=== PATIENT | male | born 1995 | race Caucasian/White ===

== ENCOUNTER 2017-05-09 17:37 | Emergency (ER) | payer BC ==
[~2017-05-09] VITALS: Ht 182.9 cm; Wt 73.6 kg
[2017-05-09 17:37] VITALS: TEMP 36.5; Ht 182.9 cm; Wt 73.6 kg
--- NOTE | 2017-05-09 18:05 | DIAGNOSTIC IMAGING REPORT ---
CHEST ONE VIEW PORTABLE HISTORY: 22 years-old Male CHEST PAIN acute atypical chest pain COMPARISON: None available TECHNIQUE: Portable upright AP view of the chest FINDINGS: Cardiomediastinal and hilar silhouettes are within normal limits. There is no pneumothorax, pleural effusion, focal airspace consolidation or overt pulmonary edema. The bones of the chest appear grossly intact. IMPRESSION: No acute process. The above report was generated using voice recognition software. It may contain grammatical, syntax or spelling errors. Electronically signed by: Jordan Herndon M.D. 05/09/2017 6:03 PM Dictated Date/Time: 05/09/2017 6:02 PM
[2017-05-09 18:08] LABS: BASO % 0.2 %; BASO ABS # 0.01 K/uL (0-0.2); EOS % 0.9 %; EOS ABS # 0.05 K/uL (0-0.5); HEMATOCRIT 43.3 % (42-52); HEMOGLOBIN 15.6 g/dL (14.0-18.0); LYMPH % 20.2 %; MEAN CELL VOLUME 81.5 fL (80-100); MEAN CORPUSCULAR HEMOGLOBIN 29.4 pg (25-34); MEAN PLATELET VOLUME 9.9 fL (7.4-10.4); MONO % 10.3 %; MONO ABS # 0.56 K/uL (0.11-0.59); NEUT % 68.4 %; NEUT ABS # 3.73 K/uL (1.4-6.5); PLATELET COUNT 188 K/uL (130-400); RED CELL DISTRIBUTION WIDTH CV 12.8 % (11.5-14.5); RED CELL DISTRIBUTION WIDTH SD 38.4 fL (36.4-46.3); WHITE BLOOD COUNT 5.45 K/uL (4.8-10.8)
[2017-05-09 18:30] LABS: ALBUMIN 4.6 gm/dl (3.4-5.0); ALT/SGPT 37 U/L (12-78); AST/SGOT 19 U/L (15-37); BLOOD UREA NITROGEN 13 mg/dl (7-18); CALCIUM 8.9 mg/dl (8.5-10.1); CARBON DIOXIDE 26 mmol/L (21-32); CREATININE 1.15 mg/dl (0.60-1.40); GLUCOSE 109 mg/dl (70-99); LIPASE 57 U/L (73-393); POTASSIUM 3.6 mmol/L (3.5-5.1); SODIUM 135 mmol/L (136-145)
[2017-05-09 18:36] LABS: ALKALINE PHOSPHATASE 107 U/L (45-117); CKMB 1.1 ng/ml (0.5-3.6)
--- NOTE | 2017-05-09 18:37 | EMERGENCY ROOM VISIT NOTE ---
History Report prepared by Kuldeep: Pollo Jo Under the Supervision of: Dr. Tito Davila M.D. First contact with patient: 17:40 Chief Complaint: CHEST PAIN Stated Complaint: CHEST PAIN History of Present Illness The patient is a 22 year old male who presents to the Emergency Room with complaints of persistent left-sided chest pain that started about an hour and 15 minutes ago. He states that he was sitting down in class, and was chewing on a pencil, and a little piece of plastic broke off, and he accidentally swallowed the piece of plastic, which worked him up. The patient notes that he did not choke on the piece of plastic. He says that the pain was an 8 out of 10 in severity initially, and has now lessened in intensity, and is now a 5 out of 10 in severity. The patient states that the chest pain came on about a minute or so after he freaked out about the pencil. He adds that he had heavy breathing as well. The patient says that he is currently a bit nauseous. He notes that 10 days ago while in his hometown, he was in the hospital for similar chest pain. He states that he was playing video games when the pain came on, but was cleaning snow off of cars about 2 hours before the episode started. The patient says that he was given IV Toradol there which made the chest pain better. He states that ever since then he has had some on-and-off chest pain. He states that his uncle of a heart attack at the age of 32, but his uncle was very unhealthy. Pt denies LOC, headache, fevers, chills, diaphoresis, visual changes, neck pain, tearing pain radiating to the back, personal history or family history of aneurysm or pulmonary embolism, uncontrolled hypertension, leg swelling, coagulation abnormalities, prolonged travel, recent surgery or immobilization, vomiting, abdominal pain, melena, hematochezia, urinary symptoms, numbness, weakness, lymphadenopathy, rash, or other complaints. Source of History: patient Onset: An hour and 15 minutes ago Position: chest (left) Symptom Intensity: at worst an 8 out of 10 Timing: other (persistent) Associated Symptoms: + SOB, + nausea Note: No other associated symptoms noted. Review of Systems See HPI for pertinent positives and negatives. A total of ten systems were reviewed and were otherwise negative. Past Medical & Surgical Medical Problems: (1) No chronic diseases present Family History Heart disease Social History Marital Status: single Housing Status: lives with roommate Occupation Status: [employer] student Current/Historical Medications No Active Prescriptions or Reported Meds Allergies Coded Allergies: No Known Allergies (Unverified , 05/09/17) Physical Exam Vital Signs Date Time Temp Pulse Resp B/P (MAP) Pulse Ox O2 Delivery O2 Flow Rate FiO2 05/09/17 20:22 82 16 137/77 96 05/09/17 18:38 88 16 131/77 100 Room Air 05/09/17 18:38 100 Room Air 05/09/17 18:38 100 Room Air 05/09/17 17:37 36.5 107 20 137/75 100 Room Air 05/09/17 17:37 100 Room Air Physical Exam GENERAL: Awake, alert, well-appearing, in no distress HENT: Normocephalic, atraumatic. Oropharynx unremarkable. EYES: Normal conjunctiva. Sclera non-icteric. NECK: Supple. No nuchal rigidity. FROM. No masses. RESPIRATORY: Clear to auscultation. No wheezes. No rales. Normal respiratory effort. CARDIAC: Normal rate. Normal rhythm. No murmurs. No rubs. Extremities warm and well perfused. Pulses equal. No JVD. GI: Soft, non-distended. No tenderness to palpation. No rebound or guarding. No masses. RECTAL: Deferred. MUSCULOSKELETAL: Atraumatic. Chest examination reveals no tenderness. The back is symmetrical on inspection without obvious abnormality. There is no CVA tenderness to palpation. No joint edema. LOWER EXTREMITIES: Calves are equal size bilaterally and non-tender. No edema. No discoloration. NEURO: Normal sensorium. No sensory or motor deficits noted. SKIN: No rash or jaundice noted. Medical Decision & Procedures ER Provider Diagnostic Interpretation: X-ray: Per my interpretation, radiologist review. CHEST ONE VIEW PORTABLE HISTORY: 22 years-old Male CHEST PAIN acute atypical chest pain COMPARISON: None available TECHNIQUE: Portable upright AP view of the chest FINDINGS: Cardiomediastinal and hilar silhouettes are within normal limits. There is no pneumothorax, pleural effusion, focal airspace consolidation or overt pulmonary edema. The bones of the chest appear grossly intact. IMPRESSION: No acute process. The above report was generated using voice recognition software. It may contain grammatical, syntax or spelling errors. Electronically signed by: Jordan Herndon M.D. 05/09/2017 6:03 PM Dictated Date/Time: 05/09/2017 6:02 PM Laboratory Results 05/09/17 17:49 Red Blood Count 5.31, Mean Corpuscular Volume 81.5, Mean Corpuscular Hemoglobin 29.4, Mean Corpuscular Hemoglobin Concent 36.0, Mean Platelet Volume 9.9, Neutrophils (%) (Auto) 68.4, Lymphocytes (%) (Auto) 20.2, Monocytes (%) (Auto) 10.3, Eosinophils (%) (Auto) 0.9, Basophils (%) (Auto) 0.2, Neutrophils # (Auto ) 3.73, Lymphocytes # (Auto) 1.10, Monocytes # (Auto) 0.56, Eosinophils # (Auto ) 0.05, Basophils # (Auto) 0.01 05/09/17 17:49 Test 05/09/17 17:49 05/09/17 18:03 05/09/17 19:26 White Blood Count 5.45 K/uL (4.8-10.8) Red Blood Count 5.31 M/uL (4.7-6.1) Hemoglobin 15.6 g/dL (14.0-18.0) Hematocrit 43.3 % (42-52) Mean Corpuscular Volume 81.5 fL (80-100) Mean Corpuscular Hemoglobin 29.4 pg (25-34) Mean Corpuscular Hemoglobin Concent 36.0 g/dl (32-36) Platelet Count 188 K/uL (130-400) Mean Platelet Volume 9.9 fL (7.4-10.4) Neutrophils (%) (Auto) 68.4 % Lymphocytes (%) (Auto) 20.2 % Monocytes (%) (Auto) 10.3 % Eosinophils (%) (Auto) 0.9 % Basophils (%) (Auto) 0.2 % Neutrophils # (Auto) 3.73 K/uL (1.4-6.5) Lymphocytes # (Auto) 1.10 K/uL (1.2-3.4) Monocytes # (Auto) 0.56 K/uL (0.11-0.59) Eosinophils # (Auto) 0.05 K/uL (0-0.5) Basophils # (Auto) 0.01 K/uL (0-0.2) RDW Standard Deviation 38.4 fL (36.4-46.3) RDW Coefficient of Variation 12.8 % (11.5-14.5) Immature Granulocyte % (Auto) 0.0 % Immature Granulocyte # (Auto) 0.00 K/uL (0.00-0.02) Anion Gap 6.0 mmol/L (3-11) Est Creatinine Clear Calc Drug Dose 106.7 ml/min Estimated GFR () 105.6 Estimated GFR (Non- 91.1 BUN/Creatinine Ratio 11.7 (10-20) Calcium Level 8.9 mg/dl (8.5-10.1) Total Bilirubin 0.7 mg/dl (0.2-1) Direct Bilirubin 0.2 mg/dl (0-0.2) Aspartate Amino Transf (AST/SGOT) 19 U/L (15-37) Alanine Aminotransferase (ALT/SGPT) 37 U/L (12-78) Alkaline Phosphatase 107 U/L (45-117) Total Creatine Kinase 168 U/L (39-308) Creatine Kinase MB 1.1 ng/ml (0.5-3.6) Creatine Kinase MB Ratio 0.7 (0-3.0) Total Protein 8.0 gm/dl (6.4-8.2) Albumin 4.6 gm/dl (3.4-5.0) Lipase 57 U/L (73-393) Bedside D-Dimer 54 ng/mlFEU (0-450) Troponin I < 0.015 ng/ml (0-0.045) Laboratory results reviewed by me ECG Per My Interpretation Indication: chest pain Rate (beats per minute): 94 Rhythm: sinus rhythm (with sinus arrhythmia) Findings: no acute ischemic change, no ectopy, other (normal intervals) ED Course 1745: The patient was evaluated in room C3. A complete history and physical exam was performed. 1902: I reevaluated the patient and he is feeling better. He will get a repeat troponin. 2008: I reevaluated the patient and he is resting comfortably. Discussed results and discharge instructions: he verbalized understanding and agreement. The patient is ready for discharge. Medical Decision Triage Nursing notes reviewed. The patient's presentation and history were concerning for chest pain. Etiologies such as Foreign body ingestion, pneumothorax, musculoskeletal, infections, gastrointestinal, anxiety, panic disorder,cardiac ischemia, aortic dissection, pulmonary embolism, pneumonia, as well as others were entertained. Patient was evaluated. Clinical he was feeling better. He felt like he got worked up when he swallowed piece of plastic and then got chest pain. He had a similar episode that occurred at rest about 10 days ago. His ECG was unremarkable. Chest x-ray negative. D-dimer performed and was negative. Cardiac markers negative. No evidence of myocarditis. He had unremarkable LFTs. There is no evidence of radiopaque foreign body on chest x-ray. No other emergent pathology and imaging. Troponin rechecked and was unremarkable. I suspect the patient had some anxiety or panic that caused the symptoms. He is doing exceptionally well at this time. Conservative management was discussed. The patient feels comfortable with this plan. If he has any problems he will come back to the emergency department. By the evaluation outlined above other emergent etiologies such as those listed in the differential, as well as others, were deemed relatively unlikely. The patient was educated about the findings as listed above. All questions were answered and the patient was pleased with the treatment. Return instructions were outlined and the patient was discharged in stable condition. The patient was referred to [facility] for follow-up for a recheck of the current condition. Medication Reconcilliation Current Medication List: was personally reviewed by me Blood Pressure Screening Patient's blood pressure: Elevated blood pressure Blood pressure disposition: Elevated BP felt to be situational Impression Primary Impression: Left sided chest pain Scribe Attestation The scribe's documentation has been prepared under my direction and personally reviewed by me in its entirety. I confirm that the note above accurately reflects all work, treatment, procedures, and medical decision making performed by me. Departure Information Dispostion Home / Self-Care Prescriptions No Active Prescriptions or Reported Meds Referrals [facility] (PCP) Patient Instructions My [facility] Additional Instructions CHEST PAIN INSTRUCTIONS: Ibuprofen(Motrin, Advil) may be used for fever or pain. Use 600mg every six hours as needed. Take with food. Avoid using more than 2400mg in a 24 hour period. Do not use 2400mg per day for more than three consecutive days without physician direction. Prolonged inappropriate use can lead to stomach upset or ulcers. (AND/OR) Acetaminophen(Tylenol) may be used for fever or pain. Use 1000mg every six hours as needed. Avoid using more than 4000mg in a 24 hour period. Rest and drink plenty of fluids as tolerated. Continue current medications. Avoid strenuous activities and anything that worsens your pain. Resume normal activities once your symptoms resolve. Return to the ER immediately for worsening or persistent chest pain, abdominal pain, vomiting, fevers, chest pains, difficulty breathing, worsening of your condition, or as needed. Follow up with S in 3 days for a recheck of your current condition.
[2017-05-09 18:38] VITALS: O2SAT 100
[2017-05-09 20:22] VITALS: BP 137/77; PULSE 82; O2SAT 96
== END 2017-05-09 20:22 | disposition home or self-care (01) ==
LOC: C.EDB 17:39 → C.EDC 20:22
DX: R07.9 Chest pain, unspecified (principal)

== ENCOUNTER 2017-05-11 20:37 | Emergency (ER) | payer BC ==
[~2017-05-11] VITALS: Ht 182.9 cm; Wt 73.0 kg
[2017-05-11 20:42] VITALS: TEMP 36.9; Ht 182.9 cm; Wt 73.0 kg
[2017-05-11] MEDS ORDERED: SODIUM CHLORIDE 0.9% 1000ML 1,000 ML IV STA (20:55)
--- NOTE | 2017-05-11 21:01 | EMERGENCY ROOM VISIT NOTE ---
History Report prepared by Kuldeep: Ralph Houston Under the Supervision of: Dr. José Antonio Chase M.D. First contact with patient: 20:48 Chief Complaint: DIZZY Stated Complaint: LIGHTHEADED,DIZZY,FEEL WEAK History of Present Illness The patient is a 22 year old male who presents to the Emergency Room with complaints of constant dizziness that began at 1830. He rates his discomfort as a 5/10 in severity. The patient states that he was here three days ago for left sided chest pain. Per the patient's report, his chest x-ray was negative and his lab work was unremarkable. The patient states that before he came into the ED, he felt as if something was stuck in his throat. He reports that he has been able to swallow, but the sensation has been persistent the last couple of days. The patient states that today he was out to eat with his roommates at 1830 when he became dizzy. He reports that he then lost his appetite and became weak when he tried to walk. He denies shortness of breath, cough, congestion, sore throat, urinary symptoms, new medications, a history of reflux, or diabetes. Source of History: patient Onset: 1829 Position: other (global) Symptom Intensity: 5/10 Quality: other (dizziness) Timing: constant Associated Symptoms: + weakness, No sorethroat, No cough, No SOB, No urinary symptoms Note: Associated symptoms: resolved chest pain, stuck sensation in throat. Review of Systems See HPI for pertinent positives & negatives. A total of 10 systems reviewed and were otherwise negative. Past Medical & Surgical Medical Problems: (1) No chronic diseases present Family History Heart disease Social History Smoking Status: Never Smoker Marital Status: single Housing Status: lives with roommate Occupation Status: [employer] student Current/Historical Medications Scheduled Ranitidine (Zantac), 150 MG PO BID Allergies Coded Allergies: No Known Allergies (Unverified , 05/11/17) Physical Exam Vital Signs Date Time Temp Pulse Resp B/P (MAP) Pulse Ox O2 Delivery O2 Flow Rate FiO2 05/11/17 22:34 95 18 139/81 98 05/11/17 21:20 83 18 121/69 98 Room Air 100 127/68 91 130/74 05/11/17 20:42 36.9 95 18 147/83 98 Room Air Physical Exam GENERAL: Patient is in no acute distress. HEENT: No acute trauma, normocephalic atraumatic, mucous membranes moist, no nasal congestion, no scleral icterus. No throat erythema or exudate. NECK: No stridor, no adenopathy, no meningismus, trachea is midline. LUNGS: Clear to auscultation bilaterally, no wheeze, no rhonchi, breath sounds equal. HEART: Without murmurs gallops or rubs, regular rate and rhythm. ABDOMEN: Soft, mildly diffusely tender, bowel sounds positive, no hernias, no peritonitis. EXTREMITIES: No cyanosis or edema, full range of motion of all the joints without pain or difficulty, no signs for acute trauma. NEUROLOGIC: Oriented x 3, no acute motor or sensory deficits, no focal weakness. SKIN: No rash, no jaundice, no diaphoresis. Medical Decision & Procedures ER Provider Diagnostic Interpretation: Radiology results as stated below per my review and radiologist interpretation: CHEST ONE VIEW PORTABLE HISTORY: 22 years-old Male EVALUATE ALTERED MENTAL STATUS/WEAKNESS acute weakness COMPARISON: Chest radiograph 05/09/2017 TECHNIQUE: Portable AP view of the chest FINDINGS: Cardiomediastinal and hilar silhouettes are within normal limits. No pneumothorax, pleural effusion, focal airspace consolidation or overt pulmonary edema. Bones of the chest appear grossly intact. IMPRESSION: No acute process. The above report was generated using voice recognition software. It may contain grammatical, syntax or spelling errors. Electronically signed by: Jordan Herndon M.D. 05/11/2017 9:42 PM Dictated Date/Time: 05/11/2017 9:42 PM Laboratory Results 05/11/17 21:11 Red Blood Count 5.26, Mean Corpuscular Volume 81.0, Mean Corpuscular Hemoglobin 29.3, Mean Corpuscular Hemoglobin Concent 36.2, Mean Platelet Volume 9.3, Neutrophils (%) (Auto) 80.9, Lymphocytes (%) (Auto) 12.7, Monocytes (%) (Auto) 5.6, Eosinophils (%) (Auto) 0.5, Basophils (%) (Auto) 0.2, Neutrophils # (Auto) 6.62, Lymphocytes # (Auto) 1.04, Monocytes # (Auto) 0.46, Eosinophils # (Auto) 0.04, Basophils # (Auto) 0.02 05/11/17 21:11 Test 05/11/17 21:11 White Blood Count 8.19 K/uL (4.8-10.8) Red Blood Count 5.26 M/uL (4.7-6.1) Hemoglobin 15.4 g/dL (14.0-18.0) Hematocrit 42.6 % (42-52) Mean Corpuscular Volume 81.0 fL (80-100) Mean Corpuscular Hemoglobin 29.3 pg (25-34) Mean Corpuscular Hemoglobin Concent 36.2 g/dl (32-36) Platelet Count 183 K/uL (130-400) Mean Platelet Volume 9.3 fL (7.4-10.4) Neutrophils (%) (Auto) 80.9 % Lymphocytes (%) (Auto) 12.7 % Monocytes (%) (Auto) 5.6 % Eosinophils (%) (Auto) 0.5 % Basophils (%) (Auto) 0.2 % Neutrophils # (Auto) 6.62 K/uL (1.4-6.5) Lymphocytes # (Auto) 1.04 K/uL (1.2-3.4) Monocytes # (Auto) 0.46 K/uL (0.11-0.59) Eosinophils # (Auto) 0.04 K/uL (0-0.5) Basophils # (Auto) 0.02 K/uL (0-0.2) RDW Standard Deviation 37.9 fL (36.4-46.3) RDW Coefficient of Variation 12.8 % (11.5-14.5) Immature Granulocyte % (Auto) 0.1 % Immature Granulocyte # (Auto) 0.01 K/uL (0.00-0.02) Anion Gap 6.0 mmol/L (3-11) Est Creatinine Clear Calc Drug Dose 98.9 ml/min Estimated GFR () 97.3 Estimated GFR (Non- 84.0 BUN/Creatinine Ratio 14.9 (10-20) Calcium Level 8.9 mg/dl (8.5-10.1) Magnesium Level 2.0 mg/dl (1.8-2.4) Total Bilirubin 0.6 mg/dl (0.2-1) Aspartate Amino Transf (AST/SGOT) 16 U/L (15-37) Alanine Aminotransferase (ALT/SGPT) 29 U/L (12-78) Alkaline Phosphatase 106 U/L (45-117) Troponin I < 0.015 ng/ml (0-0.045) Total Protein 7.9 gm/dl (6.4-8.2) Albumin 4.3 gm/dl (3.4-5.0) Globulin 3.6 gm/dl (2.5-4.0) Albumin/Globulin Ratio 1.2 (0.9-2) Thyroid Stimulating Hormone (TSH) 3.240 uIu/ml (0.300-4.500) Laboratory results reviewed by me. Medications Administered Medications (Trade) Dose Ordered Sig/Roberto Route Start Time Stop Time Status Last Admin Dose Admin Sodium Chloride 1,000 ml @ 999 mls/hr Q1H1M STAT IV 05/11/17 20:55 05/11/17 21:55 DC 05/11/17 21:24 999 MLS/HR ECG Per My Interpretation Indication: weakness Rate (beats per minute): 72 Rhythm: normal sinus Findings: nonspecific-ST abn, other (No PVCs, No ST elevation) ED Course 2049: The patient was evaluated in room C03. A complete history and physical exam was performed. 2054: Ordered Sodium Chloride 1000 ml @ 999 mls/hr IV. 2131: Orthostatic vital signs are negative. 2223: Reevaluated the patient. Discussed results and discharge instructions: He verbalized understanding and agreement. The patient is ready for discharge. Medical Decision The patient is a 22 year old male who presents to the Emergency Room with complaints of constant dizziness that began at 1830. Differential diagnoses considered include anxiety, dehydration, electrolyte abnormality, anemia, thyroid disorder, dysrhythmia, reflux, infection, and viral illness. There is no leukocytosis or concerning anemia. No significant electrolyte abnormality, kidney failure or hepatitis. The patient appears to be in a euthyroid state. EKG shows a normal sinus rhythm, no acute ischemia. Cardiac enzyme testing 1 is not consistent with acute cardiac injury. Orthostatic vital signs are negative. Chest film does not show mediastinal widening, pneumonia or pneumothorax. The patient was given IV saline for hydration, he is resting comfortably. I have given the patient reassurance. He did ask for a cardiology referral, this was given. I do think some of his issues may be anxiety related, he tells me that his mother has the same concerns. I do think the patient is stable for discharge, he will follow with cardiology and with [facility]. No concerning findings by workup or exam. He will try Zantac for 2 weeks for the irritating feeling he has in his throat as this may be reflux. Medication Reconcilliation Current Medication List: was personally reviewed by me Blood Pressure Screening Patient's blood pressure: Elevated blood pressure Blood pressure disposition: Elevated BP felt to be situational Impression Primary Impression: Dizziness Scribe Attestation The scribe's documentation has been prepared under my direction and personally reviewed by me in its entirety. I confirm that the note above accurately reflects all work, treatment, procedures, and medical decision making performed by me. Departure Information Dispostion Home / Self-Care Prescriptions Ranitidine (Zantac) 150 Mg Tab 150 MG PO BID for 14 Days, #28 TAB 3 Refills Prov: José Antonio Chase M.D. 05/11/17 Referrals [facility] (PCP) Salomón Mcrae M.D. Forms HOME CARE DOCUMENTATION FORM, IMPORTANT VISIT INFORMATION Patient Instructions My [facility] Additional Instructions follow with cardiology--call for an appt try zantac 2x per day for a few weeks to see if this helps the throat stay well hydrated proper rest every night heart testing today was all ok return if worsening
[2017-05-11 21:19] LABS: BASO % 0.2 %; BASO ABS # 0.02 K/uL (0-0.2); EOS % 0.5 %; EOS ABS # 0.04 K/uL (0-0.5); HEMATOCRIT 42.6 % (42-52); HEMOGLOBIN 15.4 g/dL (14.0-18.0); IG# 0.01 K/uL (0.00-0.02); LYMPH % 12.7 %; LYMPH ABS # 1.04 K/uL (1.2-3.4); MEAN CORPUSCULAR HEMOGLOBIN 29.3 pg (25-34); MEAN CORPUSCULAR HGB CONC 36.2 g/dl (32-36); MEAN PLATELET VOLUME 9.3 fL (7.4-10.4); MONO % 5.6 %; MONO ABS # 0.46 K/uL (0.11-0.59); NEUT % 80.9 %; NEUT ABS # 6.62 K/uL (1.4-6.5); PLATELET COUNT 183 K/uL (130-400); RED CELL DISTRIBUTION WIDTH CV 12.8 % (11.5-14.5); RED CELL DISTRIBUTION WIDTH SD 37.9 fL (36.4-46.3); WHITE BLOOD COUNT 8.19 K/uL (4.8-10.8)
[2017-05-11 21:40] LABS: ALBUMIN 4.3 gm/dl (3.4-5.0); ALT/SGPT 29 U/L (12-78); BLOOD UREA NITROGEN 18 mg/dl (7-18); CALCIUM 8.9 mg/dl (8.5-10.1); CARBON DIOXIDE 29 mmol/L (21-32); CREATININE 1.23 mg/dl (0.60-1.40); GLUCOSE 97 mg/dl (70-99); POTASSIUM 3.9 mmol/L (3.5-5.1); SODIUM 138 mmol/L (136-145)
--- NOTE | 2017-05-11 21:44 | DIAGNOSTIC IMAGING REPORT ---
CHEST ONE VIEW PORTABLE HISTORY: 22 years-old Male EVALUATE ALTERED MENTAL STATUS/WEAKNESS acute weakness COMPARISON: Chest radiograph 05/09/2017 TECHNIQUE: Portable AP view of the chest FINDINGS: Cardiomediastinal and hilar silhouettes are within normal limits. No pneumothorax, pleural effusion, focal airspace consolidation or overt pulmonary edema. Bones of the chest appear grossly intact. IMPRESSION: No acute process. The above report was generated using voice recognition software. It may contain grammatical, syntax or spelling errors. Electronically signed by: Jordan Herndon M.D. 05/11/2017 9:42 PM Dictated Date/Time: 05/11/2017 9:42 PM
[2017-05-11 21:51] LABS: ALKALINE PHOSPHATASE 106 U/L (45-117); AST/SGOT 16 U/L (15-37); TOTAL PROTEIN 7.9 gm/dl (6.4-8.2)
[2017-05-11] MEDS ORDERED: RANI150T85 PO (22:25)
[2017-05-11 22:34] VITALS: BP 139/81; PULSE 95; O2SAT 98
== END 2017-05-11 22:34 | disposition home or self-care (01) ==
LOC: C.EDB 20:39 → C.EDC 22:34
DX: R42 Dizziness and giddiness (principal); R03.0 Elevated blood-pressure reading, without diagnosis of hypertension

== ENCOUNTER 2017-05-13 02:11 | Emergency (ER) | payer BC ==
[~2017-05-13] VITALS: Ht 182.9 cm; Wt 78.9 kg
[~2017-05-13 02:11] MED LIST: RANI150T85 PO
[2017-05-13 02:15] VITALS: TEMP 36.6; Ht 182.9 cm; Wt 78.9 kg
--- NOTE | 2017-05-13 02:32 | EMERGENCY ROOM VISIT NOTE ---
History Report prepared by Kuldeep: Mariam Alvarez Under the Supervision of: Dr. Jacqueline Dveine D.O. First contact with patient: 02:18 Chief Complaint: ANXIETY Stated Complaint: ANXIETY ATTACH-FEEL LIKE SOMETHING IN THROAT History of Present Illness The patient is a 22 year old male who presents to the Emergency Room with complaints of persistent throat pain for two days. He states that he was recently seen in the ED yesterday for similar symptoms. He states that he was chewing on a mechanical pencil two days ago when a small piece of plastic lodged in between his teeth. He states as he dislodged the plastic he may have swallowed it. He has since felt like something is stuck in his throat, though he denies any true difficulty swallowing. He reports mild pain with thicker food , though is able to drink water and swallow his own saliva without issue. He notes mucus running down his throat. He states that he was able to eat macaroni and cheese, cereal, and a hotdog before he felt pain in his throat today. He states that when he lays down against his pillow the feeling in his throat is worsened. When he moves his head from side to side, he denies any changes to the discomfort in his throat. He reports feeling anxious about his health. He reports dizziness and nausea related to his current symptoms that began yesterday. He was also recently seen in the ED three days ago for chest pain. He states that he also had a similar feeling of something stuck in his throat while he was on [place] Break one week ago. He was prescribed heartburn medication, though reports no relief. He denies any difficulty breathing with swallowing. He denies any fevers, though notes chills. He denies any recent history of strep throat. He denies any tobacco use. Source of History: patient Onset: two days Position: throat Quality: other (feels like something is stuck in his throat) Timing: other (persistent) Modifying Factors (Worsening): other (lying on a pillow) Associated Symptoms: + chills, + nausea, No fevers, No SOB (while swallowing ) Note: He notes throat pain, dizziness, and anxiety. He denies any difficulty swallowing. Review of Systems See HPI for pertinent positives & negatives. A total of 10 systems reviewed and were otherwise negative. Past Medical & Surgical Medical Problems: (1) Chest pain (2) No chronic diseases present Family History Heart disease Social History Smoking Status: Never Smoker Smokeless Tobacco Use: No Marital Status: single Housing Status: lives with roommate Occupation Status: [employer] student Current/Historical Medications Scheduled Ranitidine (Zantac), 150 MG PO BID Allergies Coded Allergies: No Known Allergies (Unverified , 05/13/17) Physical Exam Vital Signs Date Time Temp Pulse Resp B/P (MAP) Pulse Ox O2 Delivery O2 Flow Rate FiO2 05/13/17 06:46 69 18 127/73 98 05/13/17 06:04 84 18 129/70 97 Room Air 05/13/17 04:04 65 18 123/66 97 Room Air 05/13/17 02:25 80 05/13/17 02:15 36.6 85 20 147/84 99 Room Air Physical Exam GENERAL: alert, well appearing, well nourished, no distress, non-toxic EYE EXAM: normal conjunctiva, PERRL and EOM's grossly intact OROPHARYNX: no exudate, no erythema, lips, buccal mucosa, and tongue normal and mucous membranes are moist NECK: supple, no nuchal rigidity, no adenopathy, non-tender, no stridor, no crepitus LUNGS: Clear to auscultation. Normal chest wall mechanics, no w/r/r HEART: no murmurs, S1 normal and S2 normal CHEST WALL: no reproducible pain, no crepitus ABDOMEN: abdomen soft, non-tender, normo-active bowel sounds, no masses, no rebound or guarding. BACK: Back is symmetrical on inspection and there is no deformity, no midline tenderness, no CVA tenderness. SKIN: no rashes and no bruising UPPER EXTREMITIES: upper extremities are grossly normal. FROM, nml pulses LOWER EXTREMITIES: No pitting edema. FROM, nml pulses NEURO EXAM: Normal sensorium, cranial nerves II-XII grossly intact, normal speech, no gross weakness of arms, no gross weakness of legs. Medical Decision & Procedures ER Provider Diagnostic Interpretation: X-ray: I interpreted the following studies. Soft Tissue Neck: No foreign body. No soft tissue gas noted. Radiology results have been interpreted by the radiologist and reviewed by me. CT NECK: No evidence of foreign body. No fluid collections. No abnormal mass lesions. The airway is patent. No adenopathy. Osseous structures are unremarkable. Mild mucosal thickening left maxillary sinus, left ethmoid air cell, and right sphenoid sinus. Lung apices are clear. Radiologist: Tj Long MD Study ready at 04:43 and initial results transmitted at 05:23 Medications Administered Medications (Trade) Dose Ordered Sig/Roberto Route Start Time Stop Time Status Last Admin Dose Admin Al Hydroxide/Mg Hydroxide (Maalox Susp) 30 ml NOW STAT PO 05/13/17 02:40 05/13/17 02:42 DC 05/13/17 03:10 30 ML Lorazepam (Ativan Tab) 0.5 mg NOW STAT SL 05/13/17 05:59 05/13/17 06:00 DC 05/13/17 06:05 0.5 MG Lorazepam (Ativan 1MG Home Pack) 1 homepack UD ONCE PO 05/13/17 06:45 05/13/17 06:46 DC 05/13/17 06:43 1 HOMEPACK ED Course 0223: The patient was evaluated in room B11B. A complete history and physical exam was performed. 0240: Ordered Maalox 30 ml PO 0255: I reassessed the patient at this time. Per patient request, I updated the patient's father via phone. 0350: I reassessed the patient at this time. He states his throat pain has improved. 0555: I reassessed the patient at this time. He states that the sensation is still present. 0559: Ordered Ativan 0.5 mg SL 0636: I reassessed the patient at this time. He is feeling better and resting comfortably. I discussed the results and treatment plan with the patient. I answered all pertaining questions that he had. He expressed understanding and verbalized agreement. The patient will be discharged home. Medical Decision Differential diagnoses include: anxiety, foreign body, thyromegaly, Zenker's diverticulum, GERD, bronchospasm, perforation, and deep space infection. Did not feel pt warranted repeat labs given normal labs within 24 hours. Pt concerned about possible injury to throat since possibly swallowing small plastic part of mechanical pencil recently. Imaging negative and no secondary signs of evolving infection or perforation. VS stable here. Pt has cards f/u scheduled this week given chest pains recently. Discussed f/u with family doctor, reassured that evaluations here in the ER have been negative and that I do not suspect any life threatening emergency at this time. Discussed sx to watch/return for he verbalized understanding and was agreeable with plan. I do not suspect underlying cardiac etiology or infectious etiology. Doubt dysrhythmia, deep space infection, vascular etiology. Discussed diet and hydration, continued use of otc acid reducing medication as a precaution given gerd could be contributing to symptoms which then lead to his anxiety. Doubt retained FB. Medication Reconcilliation Current Medication List: was personally reviewed by me Blood Pressure Screening Patient's blood pressure: Elevated blood pressure Blood pressure disposition: Elevated BP felt to be situational Impression Primary Impression: Globus sensation Scribe Attestation The scribe's documentation has been prepared under my direction and personally reviewed by me in its entirety. I confirm that the note above accurately reflects all work, treatment, procedures, and medical decision making performed by me. Departure Information Dispostion Home / Self-Care Referrals [facility] (PCP) Forms HOME CARE DOCUMENTATION FORM, IMPORTANT VISIT INFORMATION Patient Instructions My [facility] Additional Instructions Please keep your appointment with cardiology as scheduled. Please follow-up with your family doctor to otherwise discuss your symptoms. Please stay well hydrated with water. Please avoid acidic foods which could contribute to increased gerd/reflux such as alcohol, coffee, soda, tomato based products, or citrus fruits. If you have any recurrent or worsening symptoms, other have any other concerning symptoms, please return to the emergency room.
[2017-05-13] MEDS ORDERED: ALUMINUM/MAGNESIUM SUSP 30 ML UDC PO STA (02:40)
[2017-05-13] MEDS ORDERED: OPTIRAY 320 IV PRN (04:00)
[2017-05-13] MEDS ORDERED: LORAZEPAM 0.5 MG TAB SL STA (05:59)
[2017-05-13] MEDS ORDERED: ATIVAN 1MG HOMEPACK PO ONE (06:45)
[2017-05-13 06:46] VITALS: BP 127/73; PULSE 69; O2SAT 98
--- NOTE | 2017-05-13 06:55 | DIAGNOSTIC IMAGING REPORT ---
SOFT TISSUE NECK WITH CLINICAL HISTORY: globus sense lower throat/neck, hx FB recently dysphagia TECHNIQUE: Transaxial acquisition with multi axial reformatted images COMPARISON STUDY: None FINDINGS: Examination of the soft tissue neck confirms moderate mucosal thickening of the ethmoid sinuses. The globes are symmetric. The salivary glands are within normal limits. The structures of the hypopharynx, glottic, and subglottic regions are unremarkable. Thyroid is uniform. There is no evidence for mass or collection. There is no significant cervical adenopathy. The pulmonary apices are clear. IMPRESSION: Negative study The above report was generated using voice recognition software. It may contain grammatical, syntax or spelling errors. Electronically signed by: Ervin Aviles M.D. 05/13/2017 6:54 AM Dictated Date/Time: 05/13/2017 6:52 AM
--- NOTE | 2017-05-13 07:11 | DIAGNOSTIC IMAGING REPORT ---
SOFT TISSUE NECK CLINICAL HISTORY: 22 years-old Male presenting with globus sensation. TECHNIQUE: Frontal and lateral views of the neck were obtained. COMPARISON: None. FINDINGS: Normal cervical lordosis. No osseous abnormality. No prevertebral soft tissue swelling. No thickening of the epiglottis or aryepiglottic folds. The airway appears patent. No tracheal narrowing. Lung apices clear. IMPRESSION: Normal radiographs of the neck. Electronically signed by: Theodore Soni M.D. 05/13/2017 7:10 AM Dictated Date/Time: 05/13/2017 7:08 AM
== END 2017-05-13 06:46 | disposition home or self-care (01) ==
LOC: C.EDB 02:12
DX: F41.9 Anxiety disorder, unspecified (principal); R09.89 Other specified symptoms and signs involving the circulatory and respiratory systems

== ENCOUNTER → 2017-06-03 | Outpatient (CLI) | payer BC ==
--- NOTE | 2017-06-03 16:50 | DIAGNOSTIC IMAGING REPORT ---
C-SPINE ROUTINE 4 OR 5 VIEWS HISTORY: 22 years-old Male ATYPICAL CHEST PAIN,NECK PAIN acute neck pain without reported trauma COMPARISON: None available TECHNIQUE: 5 views of the cervical spine FINDINGS: There are 7 nonrib-bearing cervical type vertebral segments present. There is straightening of the normal cervical lordosis. No acute fracture, subluxation or significant degenerative changes. Bony neuroforamina appear widely patent. Imaged lung apices appear clear. No prevertebral soft tissue swelling. IMPRESSION: 1. No acute fracture or subluxation. 2. Straightening of the normal cervical lordosis may be secondary to positioning or paraspinal muscle spasm. The above report was generated using voice recognition software. It may contain grammatical, syntax or spelling errors. Electronically signed by: Jordan Herndon M.D. 06/03/2017 4:48 PM Dictated Date/Time: 06/03/2017 4:47 PM
== END | disposition home or self-care (01) ==
LOC: C.RAD1850 16:15 → MERGE 16:15
PROVIDERS: ATTEND Physician Assistant Medical
DX: R07.89 Other chest pain (principal); M54.2 Cervicalgia; R20.2 Paresthesia of skin